=== PATIENT | female | born 1975 | race Caucasian/White ===

== ENCOUNTER 2018-11-24 18:34 | Emergency (ER) | payer MEDICAID, OTHER ==
[~2018-11-24] VITALS: Ht 154.9 cm; Wt 62.1 kg
[2018-11-24 18:52] VITALS: BP 120/76
--- NOTE | 2018-11-24 19:32 | NUR ---
PT AMBULATED TO BED 11 AT THIS TIME
--- NOTE | 2018-11-24 19:32 | NUR ---
PT ASKED TO PROVIDE URINE. PT GIVING URINE AT THIS TIME
--- NOTE | 2018-11-24 19:33 | NUR ---
PT PRESENTS TO ED W/C/O L BREAST PAIN AND R ARM PAIN X "MONTHS." PT STATES SHE FEELS LUMPS ON HER L BREAST ON THE INSIDE. SHE DENIES ANY TRAUMA TO ARM AND OR BREAST AREA. +CMS. PERIPHEREAL PULSES PRESENT. NAD NOTED. RR EVEN/UNLABORED. GCS 15. AAOX4
--- NOTE | 2018-11-24 20:00 | NUR ---
PT RESTING IN BED IN RELAXED POSITION. PT RE-ADJUSTED FOR COMFORT. RELAXATION TECHNIQUES GIVEN. MOTHER AT THE BEDSIDE.
[2018-11-24 20:40] VITALS: BP 118/72
== END 2018-11-24 20:40 | disposition home or self-care (01) ==
LOC: MED 18:34
DX: S46.812A Strain of other muscles, fascia and tendons at shoulder and upper arm level, left arm, initial encounter (principal); N60.02 Solitary cyst of left breast; Z88.5 Allergy status to narcotic agent; X58.XXXA Exposure to other specified factors, initial encounter; Y93.89 Activity, other specified; Y92.89 Other specified places as the place of occurrence of the external cause; Y99.8 Other external cause status
CPT/HCPCS: 73080; 81025; 99283; Q0092